=== PATIENT | male | born 1990 | race Caucasian/White ===

== ENCOUNTER 2024-10-01 13:35 | Outpatient (OUT) | payer OTHER, SELFPAY ==
--- NOTE | 2024-10-01 13:38 | XR_ITS ---
The [address] [address] Patient Name: JULIANA JAMES MRN: [id number] date: 1990 Sex: M Assigned Patient Location: [facility] Current Patient Location: Accession/Order Number: [id number] Exam Date: 10/01/2024 13:40 Report Date: 10/04/2024 09:00 At the request of: MARLI BISHOP Procedure: XR ankle RT min 3V PROCEDURE: XR ankle RT min 3V HISTORY: Right Ankle Pain COMPARISON: None. FINDINGS: BONES:Small degenerative ossified along the anterior articular margin of the tibial plafond. No fracture, dislocation, or bone lesion. No significant joint space narrowing. SOFT TISSUES:No visible soft tissue swelling. EFFUSION:None visible. OTHER: Negative. XR/XR ankle RT min 3V IMPRESSION: 1. No acute bone abnormality. 2. Mild degenerative changes. Electronically authenticated by: TATY GARNER Date: 10/04/2024 09:00
== END 2024-10-01 13:36 | disposition home or self-care (01) ==
PROVIDERS: PCP Family Medicine; Visit Provider Podiatrist Foot & Ankle Surgery
DX: M25.571 Pain in right ankle and joints of right foot (principal)
CPT/HCPCS: 73610

== ENCOUNTER 2024-10-10 14:44 | Outpatient (OUT) | payer OTHER, SELFPAY ==
--- NOTE | 2024-10-10 14:47 | MR_ITS ---
[address] [address] Patient Name: JULIANA JAMES MRN: [id number] date: 1990 Sex: M Assigned Patient Location: MRI Current Patient Location: Accession/Order Number: [id number] Exam Date: 10/10/2024 15:00 Report Date: 10/15/2024 08:27 At the request of: MARLI BISHOP Procedure: MR ankle RT wo con EXAM: MR ankle RT wo con REASON FOR EXAM: Ankle Instability, Osteochondral Defect. TECHNIQUE: Multiplanar, multisequence imaging of the right ankle was performed without contrast COMPARISON: Radiographs 10/01/2024. FINDINGS: There is fusiform thickening and intermediate signal involving the Achilles tendon. Achilles tendon is of findings are present. No tear is evident. The plantar fascia is intact. Laterally, the peroneal tendons demonstrate grossly normal thickness and signal without tendinosis or tear. The superficial peroneal retinaculum is intact. The anterior talofibular ligament is thin and attenuated with small amount of fluid within the anterior lateral gutter. The calcaneofibular ligament is thickened with intermediate signal consistent with prior sprain. No evidence of acute lateral ligamentous injury. Medially, mild thickening and intermediate signal of the inframalleolar posterior tibial tendon consistent with tendinosis. No tear. The remaining medial flexor tendons demonstrate normal thickness and signal without tendinosis or tear. The deep deltoid ligament appears somewhat dysmorphic likely reflecting prior deep deltoid ligament sprain. The spring ligament is intact. Anteriorly, the anterior extensor tendons demonstrate normal thickness and signal without tendinosis or tear. The bone marrow signal is without fracture. There is some nonspecific subchondral marrow edema involving the anterior tibial plafond. The talar dome is congruent. No osteochondral defect identified. Small tibiotalar effusion is present. The subtalar joint is intact. The sinus tarsi is mildly edematous. There is a small talonavicular effusion. The midfoot is congruent. The plantar musculature demonstrates normal bulk and signal. Remaining soft tissues are unremarkable. MR/MR ankle RT wo con IMPRESSION: 1. Sequela of prior medial and lateral ligamentous injury. Small amount of fluid within the anterolateral gutter. 2. Achilles and posterior tibial tendinosis without tear. 3. Nonspecific subchondral marrow edema involving the anterior tibial plafond. No osteochondral defect or acute fracture. Electronically authenticated by: JULIANA DE LA PAZ Date: 10/15/2024 08:27
== END 2024-10-10 14:45 | disposition home or self-care (01) ==
LOC: MRI 14:44
PROVIDERS: PCP Family Medicine; Visit Provider Podiatrist Foot & Ankle Surgery
DX: M25.371 Other instability, right ankle (principal); M76.61 Achilles tendinitis, right leg
CPT/HCPCS: 73721